=== PATIENT | female | born 1980 | race Hispanic/Latino ===

== ENCOUNTER 2024-03-29 17:50 | Emergency (ER) | payer SELFPAY ==
[2024-03-29] MEDS ORDERED: ONDANSETRON 4 MG (ODT) TAB ONE (18:57)
[2024-03-29 19:09] LABS: SARS-CoV-2 Antigen CONTROL BLUE LINE VIS/BG OK; SARS-CoV-2 Antigen Rapid Res Negative (Negative)
--- NOTE | 2024-03-29 19:23 | ER ---
Nurse's Notes [facility] – [place], [place] Name: Britney Bradshaw Age: 43 yrs Sex: Female : 1980 Arrival Date: 03/29/2024 Time: 17:50 Bed 21 Private MD: Diagnosis: Streptococcal pharyngitis;Influenza due to identified novel influenza A virus Presentation: 03/29 18:33 Chief complaint: Patient states: N/V, fever, body aches, cough, congestion X 2 days. ld1 Coronavirus screen: At this time, the client does not indicate any symptoms associated with coronavirus-19. Ebola Screen: No symptoms or risks identified at this time. Initial Sepsis Screen: Does the patient meet any 2 criteria? No. Patient's initial sepsis screen is negative. Does the patient have a suspected source of infection? No. Patient's initial sepsis screen is negative. Risk Assessment: Do you want to hurt yourself or someone else? Patient reports no desire to harm self or others. Onset of symptoms was March 29, 2024. 18:33 Method Of Arrival: Ambulatory ld1 18:33 Acuity: NOE 4 ld1 Triage Assessment: 18:34 General: Appears in no apparent distress. comfortable, Behavior is calm, cooperative, ld1 appropriate for age. Pain: Denies pain. EENT: No signs and/or symptoms were reported regarding the EENT system. Neuro: Level of Consciousness is awake, alert, obeys commands, Oriented to person, place, time, situation. Cardiovascular: Capillary refill < 3 seconds Patient's skin is warm and dry. Respiratory: Airway is patent Respiratory effort is even, unlabored. GI: Abdomen is round non-distended. : No signs and/or symptoms were reported regarding the genitourinary system. Derm: No signs and/or symptoms reported regarding the dermatologic system. Musculoskeletal: No signs and/or symptoms reported regarding the musculoskeletal system. 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 - Infectious Disease History:: Denies. - Social history:: Smoking status: Patient denies any tobacco usage or history of. Screenin:50 [facility] ED Fall Risk Assessment (Adult) History of falling in the last 3 months, aa10 including since admission No falls in past 3 months (0 pts) Confusion or Disorientation No (0 pts) Intoxicated or Sedated No (0 pts) Impaired Gait No (0 pts) Mobility Assist Device Used Yes (1 pt) Altered Elimination No (0 pt) Score/Fall Risk Level 0 - 2 = Low Risk Oriented to surroundings, Maintained a safe environment, Educated pt \T\ family on fall prevention, incl call for assistance when getting out of bed, Assessed \T\ reinforced patient's understanding of fall precautions, Provided non-skid footwear. 19:50 Abuse screen: Denies threats or abuse. Denies injuries from another. Nutritional aa10 screening: No deficits noted. Tuberculosis screening: No symptoms or risk factors identified. Assessment: 19:49 General: Appears in no apparent distress. comfortable, well groomed, Behavior is calm, aa10 cooperative, appropriate for age, Smells of Reports Denies. Pain: Denies pain. 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 Full function Gait is steady, Cardiovascular: No deficits noted. Capillary refill < 3 seconds. Respiratory: No deficits noted. Breath sounds are clear bilaterally. Vital Signs: 18:33 BP 141 / 85; Pulse 76; Resp 18; Temp 97.9(TE); Pulse Ox 100% on R/A; ld1 19:48 BP 108 / 76; Pulse 103; Resp 20; Temp 98.4; Pulse Ox 96% on R/A; aa10 ED Course: 18:29 Patient arrived in ED. kb3 18:30 Juana Vasquez FNP-C [facility]. kb 18:30 Sharifa Trujillo MD is Attending Physician. kb 18:34 Triage completed. ld1 18:34 Arm band placed on right wrist. ld1 19:50 No provider procedures requiring assistance completed. Patient did not have IV access aa10 during this emergency room visit. 19:51 Patient has correct armband on for positive identification. Allergy band placed. Fall aa10 risk band placed. Placed in gown. Bed in low position. Call light in reach. Side rails up X2. Provided Education on: plan of care. Administered Medications: 19:08 Drug: Ondansetron PO 4 mg PO once Route: PO; ld1 19:37 Follow up: Response: No adverse reaction; Marked relief of symptoms aa10 Medication: 19:51 VIS not applicable for this client. aa10 Outcome: :22 Discharge ordered by . carmen 19:50 Discharged to home ambulatory, aa10 19:50 Condition: good 19:50 Discharge instructions given to patient, Instructed on discharge instructions, Prescriptions given X 2, 19:52 Patient left the ED. aa10 Signatures: Juana Vasquez, SHARON ANDRADE-Chey Brown RN RN ld1 Radha Lang, RN RN kb3 Erin Campos RN RN aa10
--- NOTE | 2024-03-29 19:23 | EDPHYS ---
Physician Documentation [facility] Name: Britney Bradshaw Age: 43 yrs Sex: Female : 1980 Arrival Date: 03/29/2024 Time: 17:50 Bed 21 Private MD: ED Physician Sharifa Trujillo HPI: 03/29 19:21 This 43 yrs old Female presents to ER via Ambulatory with complaints of Flu kb Symptoms. 19:21 Patient is a 43-year-old female who presents for fever, vomiting, cough and bodyaches kb that started yesterday. Daughter has similar symptoms.. 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 - Infectious Disease History:: Denies. - Social history:: Smoking status: Patient denies any tobacco usage or history of. ROS: 19:21 Constitutional: As per HPI kb Exam: 19:21 Constitutional: This is a well developed, well nourished patient who is awake, alert, kb and in no acute distress. Head/Face: Normocephalic, atraumatic. ENT: Moist Mucous membranes Cardiovascular: Regular rate Respiratory: Respirations even and unlabored. No increased work of breathing. Talking in full sentences Abdomen/GI: Soft, non-tender. No distention Skin: Warm, dry with normal turgor. Normal color. MS/ Extremity: Pulses equal, no cyanosis. Neurovascular intact. Full, normal range of motion. Neuro: Awake and alert, GCS 15, oriented to person, place, time, and situation. Vital Signs: 18:33 BP 141 / 85; Pulse 76; Resp 18; Temp 97.9(TE); Pulse Ox 100% on R/A; ld1 19:48 BP 108 / 76; Pulse 103; Resp 20; Temp 98.4; Pulse Ox 96% on R/A; aa10 MDM: 18:30 Medical Screening Exam initiated kb 19:21 Differential diagnosis: flu, covid, strep, uri. Data reviewed: vital signs, nurses kb notes. Counseling: I had a detailed discussion with the patient and/or guardian regarding the historical points, exam findings, and any diagnostic results supporting the discharge/admit diagnosis, lab results, the need for outpatient follow up, a family practitioner, to return to the emergency department if symptoms worsen or persist or if there are any questions or concerns that arise at home. 03/29 18:29 Order name: Influenza Screen (A ; Complete Time: 19:19 EDMS 03/29 18:29 Order name: SARS-COV-2 Antigen Rapid; Complete Time: 19:09 EDMS 03/29 18:29 Order name: Group A Streptococcus Rapid Sc; Complete Time: 19:19 EDMS Administered Medications: 19:08 Drug: Ondansetron PO 4 mg PO once Route: PO; ld1 19:37 Follow up: Response: No adverse reaction; Marked relief of symptoms aa10 Disposition Summary: 03/29/24 19:22 Discharge Ordered Notes: Location: Home kb Condition: Stable kb Diagnosis - Streptococcal pharyngitis kb - Influenza due to identified novel influenza A virus kb Followup: kb - With: Emergency Department - When: As needed - Reason: Worsening of condition Followup: kb - With: Private Physician - When: 2 - 3 days - Reason: Recheck today's complaints, Continuance of care, Re-evaluation by your physician Discharge Instructions: - Discharge Summary Sheet kb - Strep Throat, Adult, [id number] kb - Influenza, Adult, [id number] kb Forms: - Medication Reconciliation Form kb - Antibiotic Education kb - Prescription Opioid Use kb - Patient Portal Instructions kb - Leadership Thank You Letter kb Prescriptions: - Augmentin 875-125 mg Oral Tablet - take 1 tablet ORAL route every 12 hours for 10 days; 20 tablet; Refills: 0, kb Product Selection Permitted - Zofran 4 mg Oral tablet - take 1 tablet ORAL route every 6 hours As needed; 12 tablet; Refills: 0, kb Product Selection Permitted Signatures: Juana Vasquez FNP-C FNP-Ckb Sims, Lauren RN RN ld1 Radha Lang RN RN kb3 Erin Campos RN aa10 Corrections: (The following items were deleted from the chart) 19:21 19:20 Constitutional: As per HPI ENT: Negative for injury, pain, and discharge, kb Cardiovascular: Negative for chest pain, palpitations, and edema, Respiratory: Negative for shortness of breath, cough, wheezing, and pleuritic chest pain, Abdomen/GI: Negative for abdominal pain, nausea, vomiting, diarrhea, and constipation, MS/Extremity: Negative for injury and deformity, Skin: Negative for injury, rash, and discoloration, Neuro: Negative for headache, weakness, numbness, tingling, and seizure, kb
[2024-03-29 22:58] VITALS: BP 108/76; TEMP 98.4; O2SAT 96
== END 2024-03-29 19:52 | disposition home or self-care (01) ==
LOC: ER 17:50
DX: J10.1 Influenza due to other identified influenza virus with other respiratory manifestations (principal); J02.0 Streptococcal pharyngitis; Z11.52 Encounter for screening for COVID-19
CPT/HCPCS: 36415; 87081; 87804; 87811; Q0162

== ENCOUNTER 2024-09-23 06:25 | Inpatient (IN) | payer SELFPAY ==
[2024-09-23] MEDS ORDERED: ONDANSETRON 4 MG/2 ML VIAL ONE ×2 (06:41→08:44)
[2024-09-23] MEDS ORDERED: NA CHLORIDE 0.9% 1,000 ML ONE ×3 (06:42→12:15)
[2024-09-23 06:50] LABS: Absolute Lymphocytes (CBC) 0.5 K/uL (0.7-4.9); Hematocrit 35.5 % (36.0-45.0); Hemoglobin 12.0 g/dL (12.0-15.0); MCH 29.9 pg (27.0-35.0); MCHC 33.8 g/dL (32.0-36.0); MCV 88.5 fL (80-100); MPV 8.9 fL (7.6-11.3); Nucleated RBC Absolute Count 0.0 (0-0); Nucleated Red Blood Cells % 0.0 % (0-0); RBC Red Blood Cell Count 4.01 M/uL (3.86-4.86); White Blood Count 12.80 thou/uL (4.3-10.9)
[2024-09-23 06:59] LABS: Urine Culture Reflex Order REFLEXED; Urine Microscopic Reflex YN ORDER UMIC; Urine WBC Clump Occasional /HPF (None Seen)
[2024-09-23 07:11] LABS: ALT/SGPT 21.0 U/L (13-56); AST/SGOT 11.0 U/L (15-37); Albumin 2.9 g/dL (3.4-5.0); Albumin/Globulin Ratio 0.6 (1.1-1.8); Alkaline Phosphatase 116.0 U/L (45-117); Anion Gap 15.7 mEq/L (5.0-15.0); BUN Blood Urea Nitrogen 19.0 mg/dL (7-18); Globulin 4.9 g/dL (2.3-3.5); Lipase 13.0 U/L (13-75); Potassium 3.7 mEq/L (3.5-5.1)
[2024-09-23 07:13] LABS: Glucose Level 451.0 mg/dL (74-106)
[2024-09-23] MEDS ORDERED: NA CHLORIDE 0.9% 100 ML ONE (07:32)
[2024-09-23] MEDS ORDERED: INSULIN REGULAR (HUMAN) 100 UNIT/ML ONE ×2 (07:32→12:14)
[2024-09-23] MEDS ORDERED: FAMOTIDINE 20 MG/2 ML VIAL IV ONE (07:32)
[2024-09-23] MEDS ORDERED: CEFEPIME 1 GM/VIAL ONE (07:33)
--- NOTE | 2024-09-23 07:47 | RAD REPORT ---
Abdomen Exam Limited: 09/23/2024 7:12 AM CLINICAL HISTORY: ABD PAIN STUDY: Limited right upper quadrant ultrasound of abdomen. COMPARISON: None. FINDINGS: Liver: Limited evaluation. Hepatic steatosis noted. Fatty sparing along the gallbladder fossa. Bile ducts: No intrahepatic or extrahepatic biliary ductal dilatation. Common bile duct measures 3 mm. Gallbladder: Cholelithiasis. The gallbladder is distended. No gallbladder wall thickening. No sonogra phic Fischer sign. IMPRESSION: Gallstones with distended gallbladder but no specific findings to suggest acute cholecystitis by ultr asound. No sonographic Fischer sign.
[2024-09-23] MEDS ORDERED: MORPHINE 4 MG/ML SYR ONE (08:43)
[2024-09-23 08:55] LABS: White Blood Cell Scan OK (OK)
[2024-09-23 08:56] LABS: Blood Morphology Comment NOT SEEN (NOT SEEN)
[2024-09-23] MEDS ORDERED: ACETAMINOPHEN 500 MG TAB ONE (09:04)
[2024-09-23] MEDS ORDERED: Levofloxacin 750mg IV 750 MG/150 ML BAG IV ONE (09:04)
--- NOTE | 2024-09-23 09:07 | ER ---
Nurse's Notes [facility] Name: Britney Bradshaw Age: 44 yrs Sex: Female : 1980 Arrival Date: 09/23/2024 Time: 06:25 Bed 14 Private MD: Diagnosis: Other cholelithiasis without obstruction;Abdominal pain, Generalized;Fever, unspecified;Pyelonephritis acute;Type 2 diabetes mellitus with hyperglycemia;Elevated white blood cell count;Severe sepsis with septic shock Presentation: 09/23 06:34 Chief complaint: Patient states: C/O NAUSEA/VOMITING AND EPIGASTRIC (PRESSURE) SINCE br2 YESTERDAY MORNING. Coronavirus screen: Client denies travel out of the [place] in the last 14 days. Ebola Screen: Patient denies exposure to infectious person. Initial Sepsis Screen: Does the patient meet any 2 criteria? HR > 90 bpm. Does the patient have a suspected source of infection? No. Patient's initial sepsis screen is negative. Risk Assessment: Do you want to hurt yourself or someone else? Patient reports no desire to harm self or others. Onset of symptoms was September 22, 2024. 06:34 Method Of Arrival: Ambulatory br2 06:34 Acuity: NOE 3 br2 Triage Assessment: 06:39 General: Appears uncomfortable, Behavior is calm, cooperative. Pain: Complains of pain br2 in epigastric area Pain currently is 7 out of 10 on a pain scale. GI: Reports epigastric pain, nausea, vomiting. Historical: - Allergies: 06:39 No Known Allergies; br2 - PMHx: 06:39 ENLARGED GALL BLADDER; br2 - Immunization history:: Adult Immunizations up to date. - Infectious Disease History:: Denies. - Social history:: Smoking status: Patient denies any tobacco usage or history of. Patient/guardian denies using alcohol, street drugs. Screenin:00 [facility] ED Fall Risk Assessment (Adult) History of falling in the last 3 months, ss12 including since admission No falls in past 3 months (0 pts) Confusion or Disorientation No (0 pts) Intoxicated or Sedated No (0 pts) Impaired Gait No (0 pts) Mobility Assist Device Used No (0 pt) Altered Elimination No (0 pt) Score/Fall Risk Level 0 - 2 = Low Risk Oriented to surroundings, Maintained a safe environment, Educated pt \T\ family on fall prevention, incl call for assistance when getting out of bed, Assessed \T\ reinforced patient's understanding of fall precautions. Abuse screen: Denies threats or abuse. Denies injuries from another. Nutritional screening: No deficits noted. Tuberculosis screening: No symptoms or risk factors identified. Assessment: 06:28 General: Appears in no apparent distress. comfortable, Behavior is calm, cooperative, ss12 quiet. Pain: Complains of pain in epigastric Pain does not radiate. Pain currently is 7 out of 10 on a pain scale. Quality of pain is described as aching, Pain began suddenly, Is intermittent. Neuro: No deficits noted. Level of Consciousness is awake, alert, obeys commands, Oriented to person, place, time, situation. Cardiovascular: No deficits noted. Denies chest pain, Patient's skin is warm and dry. Respiratory: No deficits noted. Airway is patent Respiratory effort is even, unlabored, Respiratory pattern is regular, symmetrical. GI: Abdomen is flat, non-distended, Bowel sounds present X 4 quads. hypoactive in right upper quadrant and right lower quadrant Abd is soft and non tender X 4 quads. Reports nausea, vomiting. : No deficits noted. EENT: No deficits noted. No signs and/or symptoms were reported regarding the EENT system. Derm: No deficits noted. No signs and/or symptoms reported regarding the dermatologic system. Musculoskeletal: No deficits noted. No signs and/or symptoms reported regarding the musculoskeletal system. 07:30 Reassessment: Patient appears in no apparent distress at this time. No changes from kc6 previously documented assessment. Patient and/or family updated on plan of care and expected duration. Pain level reassessed. Patient is alert, oriented x 3, equal unlabored respirations, skin warm/dry/pink. 08:24 Reassessment: Patient appears in no apparent distress at this time. No changes from kc6 previously documented assessment. Patient and/or family updated on plan of care and expected duration. Pain level reassessed. Patient is alert, oriented x 3, equal unlabored respirations, skin warm/dry/pink. 08:48 GI: Pt is actively vomiting. kc6 08:57 General: Reports chills for 0-12 hours. kc6 09:24 Reassessment: Patient appears in no apparent distress at this time. No changes from kc6 previously documented assessment. Patient and/or family updated on plan of care and expected duration. Pain level reassessed. Patient is alert, oriented x 3, equal unlabored respirations, skin warm/dry/pink. Vital Signs: 06:34 BP 143 / 88; Pulse 123; Resp 20; Temp 97.5(TE); Pulse Ox 95% on R/A; Weight 83.91 kg; br2 Height 5 ft. 2 in. ; Pain 7/10; 07:06 BP 137 / 84; Pulse 110; Resp 16 S; Pulse Ox 98% on R/A; kc6 08:24 BP 149 / 89; Pulse 122; Resp 19 S; Pulse Ox 93% on R/A; kc6 08:57 Temp 101.7(O); kc6 10:13 BP 169 / 90; Pulse 112; Resp 19 S; Pulse Ox 99% on R/A; kc6 10:49 Temp 100.2(O); kc6 06:34 Body Mass Index 33.84 (83.91 kg, 157.48 cm) br2 06:34 Pain Scale: Adult br2 ED Course: 06:27 Patient arrived in ED. jj6 06:33 Hernán Jim, RN is Primary Nurse. ss12 06:39 Triage completed. br2 06:39 Arm band placed on right wrist. br2 06:53 Inserted saline lock: 22 gauge in right forearm, using aseptic technique. Blood oe collected. Flushed with 10 mL NS. 06:53 Lipase Sent. oe 06:53 CMP Sent. oe 06:53 CBC with Diff Sent. oe 06:54 UA Rfx Gasper Cult if indicated Sent. oe 07:01 Patient has correct armband on for positive identification. Provided Education on: plan ss12 of care. 07:01 No provider procedures requiring assistance completed. ss12 07:06 Primary Nurse role handed off by Hernán Jim RN kc6 07:06 Ashley Dumont, YING is Primary Nurse. kc6 07:07 Patient has correct armband on for positive identification. Bed in low position. Call kc6 light in reach. Side rails up X 1. Report received from YING Jim. Pulse ox on. NIBP on. Door closed. Noise minimized. Lights dimmed. Pillow given. Verbal reassurance given. 07:10 Akshat Patiño MD is Attending Physician. susie 07:40 US Abdomen Limited In Process Unspecified. EDMS 07:49 Radiology exam delayed due to test not completed at this time. ls3 08:38 CT Abd/Pelvis - IV Contrast Only In Process Unspecified. EDMS 09:06 Remberto Castellanos MD is Hospitalizing Provider. susie 10:36 Chest Single View XRAY In Process Unspecified. EDMS 10:49 Patient admitted, IV remains in place. kc6 Administered Medications: 06:30 Drug: Ondansetron IVP 4 mg IVP once; over 2 minutes Route: IVP; Site: right forearm; ss12 08:23 Follow up: Response: No adverse reaction; Nausea unchanged kc6 06:30 Drug: NS 0.9% IV 1000 ml IV at 1 bolus Per protocol; to be given as a bolus over 60 ss12 minutes Route: IV; Rate: 1 bolus; Site: right forearm; 08:23 Follow up: Response: No adverse reaction; IV Status: Completed infusion; IV Intake: kc6 1000ml 07:48 Drug: Famotidine IVP 20 mg IVP once; dilute with 10 mL 0.9% NaCl; give over 2 minutes kc6 Route: IVP; Site: right forearm; 08:23 Follow up: Response: No adverse reaction kc6 07:48 Drug: Insulin Regular Human IVP 10 units IVP once {Co-Signature: af3 (Maritza Alonso RN).} kc6 Route: IVP; Site: right forearm; 08:35 Follow up: Response: No adverse reaction; Blood sugar is lowered kc6 07:48 Drug: Cefepime IVPB 1 grams IVPB at 200 ml/hr once over 30 mins; (mix in NS 100 mL) kc6 Route: IVPB; Rate: 200 ml/hr; Infused Over: 30 mins; Site: right forearm; 08:23 Follow up: Response: No adverse reaction; IV Status: Completed infusion; IV Intake: kc6 100ml 08:56 Drug: Ondansetron IVP 4 mg IVP once; over 2 minutes Route: IVP; Site: right forearm; kc6 09:14 Follow up: Response: No adverse reaction; Nausea is decreased kc6 08:57 Drug: morphine IVP or IV 4 mg IVP once over 4 mins Route: IVP; Infused Over: 4 mins; kc6 Site: right forearm; 09:14 Follow up: Response: No adverse reaction; Pain is decreased; RASS: Alert and Calm (0) kc6 09:15 Drug: levofloxacin IVPB 750 mg 150 ml IVPB once over 90 mins Volume: 150 ml; Route: kc6 IVPB; Infused Over: 90 mins; Site: right forearm; 10:50 Follow up: Response: No adverse reaction; IV Status: Completed infusion; IV Intake: kc6 150ml 09:15 Drug: Acetaminophen PO 1000 mg PO once Route: PO; kc6 10:50 Follow up: Response: No adverse reaction; Temperature is decreased kc6 09:32 Drug: NS 0.9% IV (30 ml/kg) 30 ml/kg IV at bolus once; Sepsis Protocol; to be given as kc6 a bolus over 90 minutes Route: IV; Rate: bolus; Site: right forearm; 10:45 Follow up: Response: No adverse reaction; IV Status: Completed infusion; IV Intake: kc6 1500ml ; 1,000 mL subtracted from previous administration Medication: 07:01 VIS not applicable for this client. ss12 Intake: 08:23 IV: 100ml; Total: 100ml. kc6 08:23 IV: 1000ml; Total: 1100ml. kc6 10:45 IV: 1500ml; Total: 2600ml. kc6 10:50 IV: 150ml; Total: 2750ml. kc6 Outcome: 09:07 Decision to Hospitalize by Provider. susie 10:49 Admitted to ER Hold. Please see [facility] for further documentation. kc6 10:49 Condition: good 10:49 Instructed on the need for admit, 12:23 Patient left the ED. kc6 Signatures: Dispatcher [employer] EDAkshat Castellanos MD MD cha Espinosa, [place] oe Siler, Lynzie ls3 Franca Fitzgerald jj6 Ashley Dumont RN RN kc6 Mirella Ventura RN RN br2 Hernán Jim RN RN ss12 Maritza Alonso RN af3 Corrections: (The following items were deleted from the chart) 07:04 06:28 GI: No deficits noted. Abdomen is flat, non-distended, Bowel sounds present X 4 ss12 quads. Abd is soft and non tender X 4 quads. ss12 07:04 06:28 GI: No deficits noted. Abdomen is flat, non-distended, Bowel sounds present X 4 ss12 quads. hypoactive in right upper quadrant and right lower quadrant Abd is soft and non tender X 4 quads. ss12
--- NOTE | 2024-09-23 09:07 | EDPHYS ---
Physician Documentation [facility] Name: Britney Bradshaw Age: 44 yrs Sex: Female : 1980 Arrival Date: 09/23/2024 Time: 06:25 Bed 14 Private MD: ED Physician Akshat Patiño HPI: 09/23 09:01 This 44 yrs old Female presents to ER via Ambulatory with complaints of susie Abdominal Pain, Nausea/Vomiting. 09:01 The patient presents to the emergency department with nausea, vomiting, that is susie continuous. Onset: The symptoms/episode began/occurred 2 day(s) ago. Possible causes: unknown. The symptoms are aggravated by. Associated signs and symptoms: The patient has no apparent associated signs or symptoms. Unable to obtain HPI due to. The patient has not experienced similar symptoms in the past. Historical: - Allergies: 06:39 No Known Allergies; br2 - PMHx: 06:39 ENLARGED GALL BLADDER; br2 - Immunization history:: Adult Immunizations up to date. - Infectious Disease History:: Denies. - Social history:: Smoking status: Patient denies any tobacco usage or history of. Patient/guardian denies using alcohol, street drugs. ROS: 09:02 Constitutional: Negative for fever, chills, and weight loss, Eyes: Negative for injury, susie pain, redness, and discharge, ENT: Negative for injury, pain, and discharge, Neck: Negative for injury, pain, and swelling, Respiratory: Negative for shortness of breath, cough, wheezing, and pleuritic chest pain, Back: Negative for injury and pain, : Negative for injury, bleeding, discharge, and swelling, MS/Extremity: Negative for injury and deformity, Skin: Negative for injury, rash, and discoloration, Neuro: Negative for headache, weakness, numbness, tingling, and seizure, Psych: Negative for depression, anxiety, suicide ideation, homicidal ideation, and hallucinations, Allergy/Immunology: Negative for hives, rash, and allergies, Endocrine: Negative for neck swelling, polydipsia, polyuria, polyphagia, and marked weight changes, Hematologic/Lymphatic: Negative for swollen nodes, abnormal bleeding, and unusual bruising, 09:02 Cardiovascular: Positive for palpitations, 09:02 Abdomen/GI: Positive for abdominal pain, nausea and vomiting, Exam: 09:02 Head/Face: Normocephalic, atraumatic. Eyes: Pupils equal round and reactive to light, susie extra-ocular motions intact. Lids and lashes normal. Conjunctiva and sclera are non-icteric and not injected. Cornea within normal limits. Periorbital areas with no swelling, redness, or edema. ENT: Nares patent. No nasal discharge, no septal abnormalities noted. Tympanic membranes are normal and external auditory canals are clear. Oropharynx with no redness, swelling, or masses, exudates, or evidence of obstruction, uvula midline. Mucous membranes moist. Neck: Trachea midline, no thyromegaly or masses palpated, and no cervical lymphadenopathy. Supple, full range of motion without nuchal rigidity, or vertebral point tenderness. No Meningismus. Chest/axilla: Normal chest wall appearance and motion. Nontender with no deformity. No lesions are appreciated. Respiratory: Lungs have equal breath sounds bilaterally, clear to auscultation and percussion. No rales, rhonchi or wheezes noted. No increased work of breathing, no retractions or nasal flaring. Abdomen/GI: Soft, non-tender, with normal bowel sounds. No distension or tympany. No guarding or rebound. No evidence of tenderness throughout. Back: No spinal tenderness. No costovertebral tenderness. Full range of motion. Skin: Warm, dry with normal turgor. Normal color with no rashes, no lesions, and no evidence of cellulitis. MS/ Extremity: Pulses equal, no cyanosis. Neurovascular intact. Full, normal range of motion., bilateral aka Neuro: Awake and alert, GCS 15, oriented to person, place, time, and situation. Cranial nerves II-XII grossly intact. Motor strength 5/5 in all extremities. Sensory grossly intact. Cerebellar exam normal. Normal gait. Psych: Awake, alert, with orientation to person, place and time. Behavior, mood, and affect are within normal limits. 09:02 Constitutional: The patient appears febrile, 09:02 Cardiovascular: Rate: tachycardic, actual rate is 122 bpm, Rhythm: regular, Pulses: Pulses are 4+ in bilateral radial, brachial, femoral, popliteal, posterior tibial and and dorsalis pedis arteries.. Heart sounds: normal, Edema: is not appreciated, JVD: is not appreciated, 09:02 Abdomen/GI: Inspection: abdomen appears normal, Bowel sounds: normal, Palpation: moderate abdominal tenderness, Liver: no appreciated palpable abnormalities, Hernia: not appreciated, Vital Signs: 06:34 BP 143 / 88; Pulse 123; Resp 20; Temp 97.5(TE); Pulse Ox 95% on R/A; Weight 83.91 kg; br2 Height 5 ft. 2 in. ; Pain 7/10; 07:06 BP 137 / 84; Pulse 110; Resp 16 S; Pulse Ox 98% on R/A; kc6 08:24 BP 149 / 89; Pulse 122; Resp 19 S; Pulse Ox 93% on R/A; kc6 08:57 Temp 101.7(O); kc6 10:13 BP 169 / 90; Pulse 112; Resp 19 S; Pulse Ox 99% on R/A; kc6 10:49 Temp 100.2(O); kc6 06:34 Body Mass Index 33.84 (83.91 kg, 157.48 cm) br2 06:34 Pain Scale: Adult br2 MDM: 07:10 Medical Screening Exam initiated susie 09:03 Differential diagnosis: Nonspecific abd pain, gastritis, cholecystitis, pancreatitis, ussie appendicitis, diverticulitis, viral gastroenteritis, gastroenteritis, appendicitis, bowel obstruction, coronary artery disease, Cholelithiasis. Data reviewed: vital signs, nurses notes, lab test result(s), radiologic studies, CT scan, ultrasound. Consideration of Admission/Observation Patient was admitted/placed on observation. Escalation of care including admission/observation considered. I considered the following discharge prescriptions or medication management in the emergency department Medications were administered in the Emergency Department. See MAR. Independent interpretation of the following test(s) in the Emergency Department CT Scan: My interpretation is ct abd pel. Test considered but Not performed: MRI: no mrcp. Historians other than the Patient: pt well informed. Care significantly affected by the following chronic conditions: gb. 09/23 06:29 Order name: CBC with Diff; Complete Time: 08:57 rn 09/23 06:29 Order name: CMP; Complete Time: 07:14 rn 09/23 06:29 Order name: Lipase; Complete Time: 07:14 rn 09/23 06:29 Order name: UA Rfx Gasper Cult if indicated; Complete Time: 07:12 rn 09/23 07:12 Order name: Urine Culture EDMS 09/23 07:25 Order name: CBC Smear Scan; Complete Time: 08:57 EDMS 09/23 07:51 Order name: Test, Urine; Complete Time: 08:57 [facility] 09/23 08:37 Order name: Glucose, Ancillary Testing; Complete Time: 08:57 EDMS 09/23 09:08 Order name: Blood Culture Adult (2) [facility] 09/23 09:08 Order name: Lactate w/ 2H reflex if indic. [facility] 09/23 10:10 Order name: Ghost Lactate-NO COLLECT Timer EDMS 09/23 10:33 Order name: CBC with Automated Diff EDMS 09/23 10:33 Order name: CBC with Automated Diff EDMS 09/23 10:33 Order name: CBC with Automated Diff EDMS 09/23 10:33 Order name: CBC with Automated Diff EDMS 09/23 10:33 Order name: CBC with Automated Diff EDMS 09/23 10:33 Order name: CBC with Automated Diff EDMS 09/23 10:33 Order name: Comprehensive Metabolic Panel EDMS 09/23 10:33 Order name: Comprehensive Metabolic Panel EDMS 09/23 10:33 Order name: Comprehensive Metabolic Panel EDMS 09/23 10:33 Order name: Comprehensive Metabolic Panel EDMS 09/23 10:33 Order name: Comprehensive Metabolic Panel EDMS 09/23 10:33 Order name: Comprehensive Metabolic Panel EDMS 09/23 10:33 Order name: Hemoglobin A1c EDMS 09/23 10:33 Order name: Hemoglobin A1c EDMS 09/23 07:12 Order name: CT Abd/Pelvis - IV Contrast Only; Complete Time: 09:17 [facility] 09/23 07:12 Order name: US Abdomen Limited; Complete Time: 08:57 [facility] 09/23 09:08 Order name: Chest Single View XRAY susie 09/23 10:23 Order name: Renal Ultrasound-Complete [facility] 09/23 06:29 Order name: IV Saline Lock; Complete Time: 06:54 rn 09/23 06:29 Order name: Labs collected and sent; Complete Time: 06:53 rn Administered Medications: 06:30 Drug: Ondansetron IVP 4 mg IVP once; over 2 minutes Route: IVP; Site: right forearm; ss12 08:23 Follow up: Response: No adverse reaction; Nausea unchanged [facility] 06:30 Drug: NS 0.9% IV 1000 ml IV at 1 bolus Per protocol; to be given as a bolus over 60 ss12 minutes Route: IV; Rate: 1 bolus; Site: right forearm; 08:23 Follow up: Response: No adverse reaction; IV Status: Completed infusion; IV Intake: kc6 1000ml 07:48 Drug: Famotidine IVP 20 mg IVP once; dilute with 10 mL 0.9% NaCl; give over 2 minutes kc6 Route: IVP; Site: right forearm; 08:23 Follow up: Response: No adverse reaction 6 07:48 Drug: Insulin Regular Human IVP 10 units IVP once {Co-Signature: af3 (Maritza Alonso RN).} kc6 Route: IVP; Site: right forearm; 08:35 Follow up: Response: No adverse reaction; Blood sugar is lowered [facility] 07:48 Drug: Cefepime IVPB 1 grams IVPB at 200 ml/hr once over 30 mins; (mix in NS 100 mL) kc6 Route: IVPB; Rate: 200 ml/hr; Infused Over: 30 mins; Site: right forearm; 08:23 Follow up: Response: No adverse reaction; IV Status: Completed infusion; IV Intake: kc6 100ml 08:56 Drug: Ondansetron IVP 4 mg IVP once; over 2 minutes Route: IVP; Site: right forearm; kc6 09:14 Follow up: Response: No adverse reaction; Nausea is decreased 6 08:57 Drug: morphine IVP or IV 4 mg IVP once over 4 mins Route: IVP; Infused Over: 4 mins; kc6 Site: right forearm; 09:14 Follow up: Response: No adverse reaction; Pain is decreased; RASS: Alert and Calm (0) [facility] 09:15 Drug: levofloxacin IVPB 750 mg 150 ml IVPB once over 90 mins Volume: 150 ml; Route: kc6 IVPB; Infused Over: 90 mins; Site: right forearm; 10:50 Follow up: Response: No adverse reaction; IV Status: Completed infusion; IV Intake: kc6 150ml 09:15 Drug: Acetaminophen PO 1000 mg PO once Route: PO; kc6 10:50 Follow up: Response: No adverse reaction; Temperature is decreased [facility] 09:32 Drug: NS 0.9% IV (30 ml/kg) 30 ml/kg IV at bolus once; Sepsis Protocol; to be given as kc6 a bolus over 90 minutes Route: IV; Rate: bolus; Site: right forearm; 10:45 Follow up: Response: No adverse reaction; IV Status: Completed infusion; IV Intake: kc6 1500ml ; 1,000 mL subtracted from previous administration Disposition Summary: 09/23/24 09:07 Hospitalization Ordered Notes: Hospitalization Status: Inpatient Admission susie Provider: Remberto Castellanos cha Location: Telemetry/[facility] (Inpatient) susie Condition: Fair susie Problem: new susie Symptoms: have improved susie Bed/Room Type: Standard susie Room Assignment: 404(09/23/24 11:30) eb Diagnosis - Other cholelithiasis without obstruction susie - Abdominal pain, Generalized susie - Fever, unspecified susie - Pyelonephritis acute susie - Type 2 diabetes mellitus with hyperglycemia susie - Elevated white blood cell count susie - Severe sepsis with septic shock susie Forms: - Medication Reconciliation Form susie - SBAR form susie - Leadership Thank You Letter susie Signatures: Dispatcher [employer] Akshat Vargas MD MD cha Nieto, Roman, MD MD rn Botello, Elizabeth eb Campbell, Kaitlyn RN RN kc6 Mirella Ventura RN RN br2 Hernán Jim RN RN ss12 Maritza Alonso RN af3 Corrections: (The following items were deleted from the chart) 06:30 06:30 CBC+H.LAB.BRZ ordered. EDMS EDMS 06:30 06:30 COMPREHENSIVE METABOLIC PANEL+C.LAB.BRZ ordered. EDMS EDMS 06:30 06:30 LIPASE+C.LAB.BRZ ordered. EDMS EDMS 06:30 06:30 Abdomen Pelvis W Con+CT.RAD.BRZ ordered. EDMS EDMS 07:13 07:13 Abdomen Pelvis W Con+CT.RAD.BRZ ordered. EDMS EDMS 07:13 07:13 Abdomen Limited+US.RAD.BRZ ordered. EDMS EDMS 07:51 07:51 Test, Urine+UC.LAB.BRZ ordered. EDMS EDMS 10:49 09:07 susie eb 11:30 10:49 429 eb eb
--- NOTE | 2024-09-23 09:08 | RAD REPORT ---
EXAMINATION: Abdomen Pelvis W Contrast CLINICAL INDICATION: Female, 44 years old.ABD PAIN TECHNIQUE: CT abdomen and pelvis was performed, after the administration of IV contrast, [facility]. Axial, sagittal and coronal reconstructions were obtained. One or more of the following dose reduction techniques were used: Automated exposure control, adjustment of the mA and/o r kV according to patient size, and/or iterative reconstruction. Unless otherwise specified, incidental findings do not require dedicated imaging follow-up. [id number]. COMPARISON: Same-day ultrasound FINDINGS: LOWER CHEST: No acute process identified.No significant pericardial effusion. Mild circumferential th ickening of the distal esophagus which could reflect esophagitis. UPPER GI: No significant abnormality. LIVER: Hepatic steatosis, but otherwise unremarkable. GALLBLADDER/BILE DUCTS: Distended gallbladder.?No pericholecystic fluid changes. PANCREAS: Atrophy but no acute findings. SPLEEN: Unremarkable. ADRENALS: No adrenal masses. KIDNEYS AND URETERS: Right-sided nephrogram bilaterally.Right lower pole subcapsular fluid collection measuring 12 mm in maximal thickness.Punctate stone in the upper pole left kidney.No ureteral calculi. Left renal cyst. ABDOMINAL AORTA AND OTHER VESSELS: Normal caliber aorta and IVC. PERITONEUM: No abnormal free fluid. No free air. LYMPH NODES: No pathologic lymphadenopathy. ABDOMINAL WALL: Unremarkable SMALL BOWEL/COLON: Small bowel has normal course and caliber. No colonic wall thickening or pericolon ic inflammatory changes.Normal appendix. URINARY BLADDER: Underdistended but grossly unremarkable. REPRODUCTIVE ORGANS: No pathologic process. MUSCULOSKELETAL: No acute or suspicious osseous abnormality. ADDITIONAL FINDINGS: None. IMPRESSION: Striated nephrograms bilaterally with an appearance that could reflect polynephritis. A subcapsular f luid collection is present along the lower pole right kidney that is presumably a subcapsular hematoma though of uncertain acuity and sterility. There is only mild mass effect on the lower pole o f the right kidney and the collection is likely not large enough for drainage. No hydronephrosis.
[2024-09-23] MEDS ORDERED: NA CHLORIDE 0.9% 500 ML ONE (09:26)
--- NOTE | 2024-09-23 10:54 | RAD REPORT ---
EXAM: Chest Single View HISTORY: 44 years Female COUGH COMPARISON: No prior exams FINDINGS: LUNGS/PLEURA: The lungs are clear. No pleural effusions or pneumothorax. No pulmonary edema. CARDIAC/MEDIASTINUM: The cardiac silhouette is within normal limits. UPPER ABDOMEN: No significant abnormality. BONES: No acute abnormality. LINES/TUBES/OTHER: N/A IMPRESSION: No evidence of acute cardiopulmonary disease.
[2024-09-23] MEDS: NA CHLORIDE 0.9% 1,000 ML IV SCH (11:00)
[2024-09-23] MEDS: INSULIN REGULAR (HUMAN) 100 UNIT/ML SQ SCH (11:30)
[2024-09-23] MEDS: ACETAMINOPHEN 325 MG TABLET PO PRN (12:59)
--- NOTE | 2024-09-23 14:01 | P.HP ---
Certification for Inpatient Patient admitted to: Inpatient With expected LOS: >2 Midnights Patient will require the following post-hospital care: None Practitioner: I am a practitioner with admitting privileges, knowledge of patient current condition, hospital course, and medical plan of care. Services: Services provided to patient in accordance with Admission requirements found in Title 42 Section 412.3 of the Code of Federal Regulations Patient History Date of Service: 09/23/24 Reason for admission: Pyelonephritis History of Present Illness: 44-year-old female with history of pbz-axjqrwh-ljdjvqbie diabetes presents the emergency department chief complaint of nausea vomiting and abdominal pain. She was seen here in the hospital on 09/07 and diagnosed with urinary tract infection, she was given 10 days of Keflex at that time. Her urine culture returned with Klebsiella which was sensitive to all tested antibiotics except for ampicillin. She reports that she felt better for couple days after finishing the antibiotics but then her symptoms came back with nausea, vomiting and abdominal pain. She was evaluated here in the emergency room and found to be febrile and tachycardic with an initial lactate of 2.1 white blood cell count of 12.8 CT of the abdomen pelvis was obtained which showed striated nephrograms bilaterally with an appearance that could reflect pyelonephritis. A subcapsular fluid collection is present on the lower pole of the right kidney that is presumably a subcapsular hematoma though of uncertain acuity instability. There is only mild mass effect on the lower pole of the right kidney and the collection is not large enough for drainage, no hydronephrosis noted. Abdominal ultrasound was also performed which showed gallstones with a distended gallbladder but no specific findings to suggest acute cholecystitis and no sonographic Fischer sign. Chest x-ray is negative for acute findings, discussed the case with radiology, area under the right kidney is very small, does not believe this is an abscess at this time and is not amendable to drainage, will obtain renal ultrasound to further evaluate/obtain baseline. Patient will be admitted for pyelonephritis, severe sepsis. Allergies No Known Allergies Allergy (Verified 09/23/24 12:38) Home Medications: Metformin HCl [Glucophage] 500 mg PO BIDWM 09/23/24 - Past Medical/Surgical History Has patient received pneumonia vaccine in the past: No Diabetic: Yes -: Diabetes- Type 2 -: UTI -: C- Scection x1 - Family History Mother -: Hypertension, Diabetes - Social History Smoking Status: Never smoker Alcohol use: No CD- Drugs: No Caffeine use: No Place of Residence: Home Review of Systems 10-point ROS is otherwise unremarkable General: Fever, Chills Gastrointestinal: Nausea, Vomiting, Abdominal Pain Physical Examination - Vital Signs Temperature: 101.7 F Blood Pressure: 149/89 Pulse: 122 Respirations: 19 Pulse Ox (%): 96 - Physical Exam General: Alert, In no apparent distress, Oriented x3 HEENT: Atraumatic, PERRLA, EOMI Neck: Supple, 2+ carotid pulse no bruit, No LAD Respiratory: Clear to auscultation bilaterally, Normal air movement Cardiovascular: Regular rate/rhythm, Normal S1 S2 Gastrointestinal: Normal bowel sounds, Tenderness (No epigastric tenderness, mild CVA tenderness on the right) Musculoskeletal: No tenderness Integumentary: No rashes Neurological: Normal gait, Normal speech, Normal strength at 5/5 x4 extr, Normal affect - Studies Laboratory Data (last 24 hrs) 09/23/24 09/23/24 06:37 06:37 WBC 12.80 H Hgb 12.0 Hct 35.5 L Plt Count 256 Sodium 132 L Potassium 3.7 BUN 19 H Creatinine 0.88 Glucose 451 H* Total Bilirubin 0.7 AST 11 L ALT 21 Alkaline Phosphatase 116 Lipase 13 Assessment and Plan - Plan Assessment: Severe sepsis secondary to bilateral pyelonephritis Right lower renal pole septic capsular fluid collection Distended gallbladder with cholelithiasis Diabetes mellitus type [id number] with noncompliance and hyperglycemia Plan: Severe sepsis secondary to bilateral pyelonephritis Right lower renal pole subcapsular fluid collection Blood cultures obtained in the ED, initial lactate 2.1, now downtrending Continue IV fluids, antibiotics with cefepime Urine culture from 09/07 grew Klebsiella which was essentially pansensitive completed 10 days of Keflex at home Renal ultrasound ordered and pending, unclear stability/chronicity of subcapsular fluid collection-not amenable to IR draining at this time Consider repeat ultrasound Distended gallbladder with cholelithiasis No epigastric pain currently, LFTs within normal limits surgical consultation Serial abdominal exams, daily labs Diabetes mellitus type [id number] with noncompliance and hyperglycemia ACHS Accu-Chek, sliding scale insulin A1c in the morning Start long-acting insulin tonight given degree of hyperglycemia DVT PPX: Lovenox Code status: Full code Discharge Plan: Home Plan to discharge in: Greater than 2 days - Advance Directives Does patient have a Living Will: No Does patient have a Durable POA for Healthcare: No - Code Status/Comfort Care Code Status Assessed: Yes (Full code) Critical Care: No Time Spent Managing Pts Care (In Minutes): 76
[2024-09-23] MEDS: HYDROCODONE/APAP 7.5/325 MG TAB PO PRN (15:20)
[2024-09-23] MEDS: ONDANSETRON 4 MG/2 ML VIAL IV PRN (16:36)
[2024-09-23] MEDS: CEFEPIME 2 GM in NA CHLORIDE 0.9% 100 ML IV SCH (20:00)
[2024-09-23] MEDS: INSULIN GLARGINE 100 UNIT/ML SQ SCH (20:21)
[2024-09-23] MEDS: PROMETHAZINE INJ 25 MG/ML AMP IM ONE (21:40)
[2024-09-24 06:50] LABS: Albumin 1.6 g/dL (3.4-5.0); Albumin/Globulin Ratio 0.5 (1.1-1.8); Alkaline Phosphatase 69 U/L (45-117); Anion Gap 12.2 mEq/L (5.0-15.0); BUN Blood Urea Nitrogen 14 mg/dL (7-18); Globulin 3.4 g/dL (2.3-3.5); Glucose Level 301 mg/dL (74-106); Potassium 3.2 mEq/L (3.5-5.1)
[2024-09-24 07:01] LABS: ALT/SGPT < 14 U/L (13-56); AST/SGOT < 10 U/L (15-37)
[2024-09-24 07:45] LABS: Absolute Lymphocytes (CBC) 0.7 K/uL (0.7-4.9); Hematocrit 23.3 % (36.0-45.0); Hemoglobin 7.9 g/dL (12.0-15.0); MCH 30.3 pg (27.0-35.0); MCHC 33.8 g/dL (32.0-36.0); MCV 89.8 fL (80-100); MPV 9.9 fL (7.6-11.3); Nucleated RBC Absolute Count 0.0 (0-0); Nucleated Red Blood Cells % 0.0 % (0-0); RBC Red Blood Cell Count 2.59 M/uL (3.86-4.86); White Blood Count 7.30 thou/uL (4.3-10.9)
[2024-09-24] MEDS: INSULIN REGULAR (HUMAN) 100 UNIT/ML SQ SCH (07:50)
[2024-09-24] MEDS: PROMETHAZINE INJ 25 MG/ML AMP IM PRN (07:51)
[2024-09-24] MEDS: POTASSIUM CL SA 10 MEQ TAB PO ONE (07:51)
[2024-09-24] MEDS: Ringers Lactate 1,000 ML IV SCH (07:51)
[2024-09-24] MEDS: MORPHINE 2 MG/ML SYR IV PRN (07:51)
[2024-09-24] MEDS: INSULIN GLARGINE 100 UNIT/ML SQ SCH (08:01)
[2024-09-24] MEDS: ENOXAPARIN 40 MG/0.4 ML SQ SCH (08:11)
--- NOTE | 2024-09-24 09:53 | P.PN ---
Date of Service: 09/24/24 Subjective: Still with nausea/vomiting, right-sided back pain Some more abdominal pain/tenderness to right upper quadrant today Reports 2 episodes of vaginal bleeding yesterday ROS: 10 point ROS as noted above, otherwise negative Physical exam GEN: Alert, oriented, NAD HEENT: Normal conjunctiva, sclera anicteric CV: Regular rate and rhythm, no edema Pulm: Nonlabored respirations on room air ABD: Soft, mild right upper quadrant tenderness, mild right CVA tenderness, nondistended MSK: No joint tenderness Integumentary: No rashes Neuro: Normal speech, normal affect Vitals reviewed Assessment: Severe sepsis secondary to bilateral pyelonephritis Right lower renal pole septic capsular fluid collection Distended gallbladder with cholelithiasis Vaginal bleeding Acute blood loss anemia Diabetes mellitus type [id number] with noncompliance and hyperglycemia Plan: Severe sepsis secondary to bilateral pyelonephritis Right lower renal pole subcapsular fluid collection Blood cultures obtained in the ED, initial lactate 2.1, now downtrending Blood cultures with no growth in 24 hours Continue IV fluids, antibiotics with cefepime Urine culture from 09/07 grew Klebsiella which was essentially pansensitive completed 10 days of Keflex at home renal ultrasound ordered and pending, unclear stability/chronicity of subcapsular fluid collection-not amenable to IR draining at this time Distended gallbladder with cholelithiasis LFTs within normal limits, some mild upper abdominal tenderness today surgical consultation Serial abdominal exams, daily labs Vaginal bleeding Acute blood loss anemia Reports 2 episodes of vaginal bleeding 09/23 evening Normal menstrual cycle was from 09/09 through 09/15 This is not a common occurrence for her We will monitor for further bleeding Will also obtain labs to evaluate for iron deficiency anemia and repeat hemoglobin this afternoon Diabetes mellitus type [id number] with noncompliance and hyperglycemia ACHS Accu-Chek, sliding scale insulin A1c was 11.4 Started on long-acting insulin-titrating DVT PPX: Lovenox Code status: Full code Discharge Plan: Home Plan to discharge in: Greater than 2 days Time Spent Managing Pts Care (In Minutes): 35
[2024-09-24] MEDS: METRONIDAZOLE 500mg IVPB 500 MG/100 ML BAG IV SCH (10:11)
[2024-09-24] MEDS: ONDANSETRON 4 MG/2 ML VIAL IV PRN (10:11)
[2024-09-24 11:24] LABS: Differential Total Cells Count 100; Segmented Neutrophils 74 % (40-80)
[2024-09-24 11:25] LABS: Blood Morphology Comment NOTED (NOT SEEN); Toxic Granulation 1+
[2024-09-24 12:49] LABS: Hematocrit 25.3 % (36.0-45.0); Hemoglobin 8.8 g/dL (12.0-15.0); MCH 30.8 pg (27.0-35.0); MCHC 34.7 g/dL (32.0-36.0); MCV 88.7 fL (80-100); MPV 9.3 fL (7.6-11.3); RBC Red Blood Cell Count 2.85 M/uL (3.86-4.86); White Blood Count 8.60 thou/uL (4.3-10.9)
[2024-09-24 13:11] LABS: Ferritin 367.9 ng/mL (8-252); Transferrin 114 mg/dL (200-360)
[2024-09-24 13:14] LABS: Iron < 10.0 ug/dL (50-170)
--- NOTE | 2024-09-24 16:23 | CON ---
Date of Consultation: 09/24/2024 Diagnoses: Urinary tract infection, pyelonephritis, diabetes, abdominal pain. History Of Present Illness: This is a case of a 44-year-old patient with a story of urinary tract in [facility]. Given antibiotics, then the cultures were checked. The antibiotics were adjusted to that. She reports feeling better, but then after that, the symptoms came back, but at this time also came associated with nausea, vomiting, abdominal pain with flank tenderness. So, she was also found to casey ve a fever and tachycardia and the working diagnosis of pyelonephritis, who has recently got admissio n, but also surgical consult was obtained since she has nausea and vomiting and she has ultrasound sh owing gallbladder, trying to see . Surgical consult was obtained. She denies any dysuria, hematuria, hematochezia, melena. Denies any recent traveling out of the country. Denies any family members sick at home. part, she has some burning sensation to it and frequency, but no b lood. No hematuria and not associated with diet. Review of Systems: Ten points otherwise unremarkable. Allergies: NONE. Medications: Metformin. Medical History: Diabetes. Family History: Include diabetes. Social History: She does not smoke. She does not drink alcohol. Physical Examination: Vital Signs: Temperature is 99.5 with pulse 103, blood pressure 110/70, respirations 16. General: The patient is awake, alert. There is no distress, but she has pain in the flank and also pain in the epigastric area. HEENT: The pupils are equal and reactive. Anicteric. Neck: Supple. Chest: Clear. Heart: S1, S2. Abdomen: Soft and depressible. There is mild epigastric tenderness, right flank, left flank and pul se to palpation. The rest of abdomen is soft and depressible. Extremities: Good capillary refill. Breasts/Pelvic/Rectal: Deferred. Laboratory Data: Blood work shows a WBC count of 12, hemoglobin of 12.0, and platelets of 256. Sodi um is 132, bicarb is 21, glucose 451, total bilirubin of 0.7, alkaline phosphate 116, lipase 13. Lac tic acid 2.1. CAT scan of the abdomen and pelvis done on 09/23/2024 and also an ultrasound shows ___ nephrogram bilaterally and appearance that could reflect pyelonephritis, subcapsular fluid co llection present along the lower pole of the kidneys. Distended gallbladder. No pericholecystic flu id. There is a fluid present cannot rule out the area of the kidneys right side, cannot rule out hem atoma, but not amenable for drainage as per radiologist. Abdominal ultrasound shows gallstones, dist ended gallbladder, but no findings of acute cholecystitis. Assessment/plan: A 44-year-old patient comes to us with multiple picture. She has multiple problems in the kidneys, also urinary tract infection, treated for that and found to have also epigastric canddio n and back pain and gallstones were seen, although no evidence of acute cholecystitis. She is going to be on antibiotics. Advance diet slowly. She might have 2 problems at the same time. Hopefully, we can treat this with antibiotics and then when the infection gets better in the kidneys, we may add ress the issue of the gallbladder. We see that clinically she deteriorates and the gallbladder take priority, then we will proceed accordingly. She understands that. She still want to continue conser vative treatment. KAY/MATT Voice ID: [id number] Report ID: [id number]
[2024-09-25 05:03] VITALS: BMI 33.8
[2024-09-25 05:20] LABS: Absolute Lymphocytes (CBC) 0.9 K/uL (0.7-4.9); Hematocrit 22.2 % (36.0-45.0); Hemoglobin 7.5 g/dL (12.0-15.0); MCH 30.3 pg (27.0-35.0); MCHC 33.9 g/dL (32.0-36.0); MCV 89.3 fL (80-100); MPV 9.6 fL (7.6-11.3); Nucleated RBC Absolute Count 0.0 (0-0); Nucleated Red Blood Cells % 0.1 % (0-0); RBC Red Blood Cell Count 2.49 M/uL (3.86-4.86); White Blood Count 7.90 thou/uL (4.3-10.9)
[2024-09-25 06:18] LABS: Albumin 1.5 g/dL (3.4-5.0); Albumin/Globulin Ratio 0.5 (1.1-1.8); Alkaline Phosphatase 72 U/L (45-117); Anion Gap 14.0 mEq/L (5.0-15.0); BUN Blood Urea Nitrogen 12 mg/dL (7-18); Globulin 3.3 g/dL (2.3-3.5); Glucose Level 152 mg/dL (74-106); Potassium 4.0 mEq/L (3.5-5.1)
[2024-09-25 06:24] LABS: ALT/SGPT < 14 U/L (13-56); AST/SGOT < 10 U/L (15-37)
--- NOTE | 2024-09-25 06:48 | RAD REPORT ---
EXAMINATION: US RETROPERITONEUM CLINICAL INDICATION: R/O right renal abscess TECHNIQUE: Real-time ultrasonography of the abdomen was performed. COMPARISON: Same day CT FINDINGS: RIGHT KIDNEY: Right renal length measurement: 12.2 cm. Echogenicity is normal. No calculus or solid mass. No hydronephrosis. . Complex subcapsular fluid collection measuring 1.9 cm in maximal thickness which is present along lower pole. LEFT KIDNEY: Left renal length measurement: 11.7 cm. Echogenicity is normal. No calculus or solid m ass. No hydronephrosis. . ADDITIONAL FINDINGS: Debris present in the bladder. IMPRESSION: Complex subcapsular fluid collection along the lower pole right kidney measuring 19 mm in thickness. This may reflect a subcapsular hematoma but has indeterminate sterility. No evidence of hydronephrosis. Nonspecific bladder debris.
--- NOTE | 2024-09-25 09:32 | P.PN ---
Date of Service: 09/25/24 Subjective: Symptoms improved from yesterday Less RUQ tenderness today no further vaginal bleeding ROS: 10 point ROS as noted above, otherwise negative Physical exam GEN: Alert, oriented, NAD HEENT: Normal conjunctiva, sclera anicteric CV: Regular rate and rhythm, no edema Pulm: Nonlabored respirations on room air ABD: Soft, mild right upper quadrant tenderness, mild right CVA tenderness, nondistended MSK: No joint tenderness Integumentary: No rashes Neuro: Normal speech, normal affect Vitals reviewed Assessment: Severe sepsis secondary to bilateral pyelonephritis Right lower renal pole septic capsular fluid collection Distended gallbladder with cholelithiasis Vaginal bleeding Acute blood loss anemia/severe iron deficiency anemia Diabetes mellitus type [id number] with noncompliance and hyperglycemia Plan: Severe sepsis secondary to bilateral pyelonephritis Right lower renal pole subcapsular fluid collection Blood cultures obtained in the ED, initial lactate 2.1, now downtrending Blood cultures with no growth in 24 hours Continue IV fluids, antibiotics with cefepime Urine culture from 09/07 grew Klebsiella which was essentially pansensitive completed 10 days of Keflex at home Fluid collection-unclear stability/chronicity of subcapsular fluid collection- not amenable to IR draining at this time Distended gallbladder with cholelithiasis LFTs within normal limits, some mild upper abdominal tenderness today surgical consultation Serial abdominal exams, daily labs Vaginal bleeding Acute blood loss anemia/severe iron deficiency anemia Reports 2 episodes of vaginal bleeding 09/23 evening Normal menstrual cycle was from 09/09 through 09/15 This is not a common occurrence for her We will monitor for further bleeding Monitor H/H daily Diabetes mellitus type [id number]-[id number] with noncompliance and hyperglycemia ACHS Accu-Chek, sliding scale insulin A1c was 11.4 Started on long-acting insulin-titrating DVT PPX: Lovenox Code status: Full code Discharge Plan: Home Plan to discharge in: Greater than 2 days Time Spent Managing Pts Care (In Minutes): 35
[2024-09-25] MEDS: CALCIUM CARBONATE CHEW 500MG TAB PO PRN (23:55)
[2024-09-26] MEDS: PANTOPRAZOLE 40MG TABLET PO ONE (00:11)
[2024-09-26 05:31] LABS: Absolute Lymphocytes (CBC) 1.3 K/uL (0.7-4.9); Hematocrit 26.0 % (36.0-45.0); Hemoglobin 8.8 g/dL (12.0-15.0); MCH 29.9 pg (27.0-35.0); MCHC 33.9 g/dL (32.0-36.0); MCV 88.2 fL (80-100); MPV 9.9 fL (7.6-11.3); Nucleated RBC Absolute Count 0.0 (0-0); Nucleated Red Blood Cells % 0.0 % (0-0); RBC Red Blood Cell Count 2.95 M/uL (3.86-4.86); White Blood Count 8.60 thou/uL (4.3-10.9)
[2024-09-26 05:55] LABS: Albumin 2.0 g/dL (3.4-5.0); Albumin/Globulin Ratio 0.5 (1.1-1.8); Alkaline Phosphatase 96 U/L (45-117); Anion Gap 10.5 mEq/L (5.0-15.0); BUN Blood Urea Nitrogen 13 mg/dL (7-18); Globulin 4.4 g/dL (2.3-3.5); Glucose Level 144 mg/dL (74-106); Potassium 3.5 mEq/L (3.5-5.1)
[2024-09-26 05:59] LABS: ALT/SGPT < 14 U/L (13-56); AST/SGOT < 10 U/L (15-37)
[2024-09-26] MEDS: PANTOPRAZOLE 40MG TABLET PO SCH ×2 (08:08→15:58)
--- NOTE | 2024-09-26 10:10 | P.PN ---
Date of Service: 09/26/24 Subjective: Still with nausea/vomiting and epigastric pain Pain seems to be more associated with nausea and vomiting to her Otherwise she is feeling little better each day Denies any further episodes of vaginal bleeding ROS: 10 point ROS as noted above, otherwise negative Physical exam GEN: Alert, oriented, NAD HEENT: Normal conjunctiva, sclera anicteric CV: Regular rate and rhythm, no edema Pulm: Nonlabored respirations on room air ABD: Soft, mild right upper quadrant tenderness, mild right CVA tenderness, nondistended MSK: No joint tenderness Integumentary: No rashes Neuro: Normal speech, normal affect Vitals reviewed Assessment: Severe sepsis secondary to bilateral pyelonephritis Right lower renal pole septic capsular fluid collection Distended gallbladder with cholelithiasis Vaginal bleeding Acute blood loss anemia/severe iron deficiency anemia Diabetes mellitus type [id number]-pqwirftgz with noncompliance and hyperglycemia Plan: Severe sepsis secondary to bilateral pyelonephritis Right lower renal pole subcapsular fluid collection Blood cultures obtained in the ED, initial lactate 2.1, now downtrending Blood cultures with no growth in 24 hours Repeat urine culture grew Klebsiella Continue IV fluids, antibiotics with cefepime and Flagyl sensitive to cefepime Urine culture from 09/07 grew Klebsiella which was essentially pansensitive completed 10 days of Keflex at home Fluid collection-unclear stability/chronicity of subcapsular fluid collection- not amenable to IR draining at this time Distended gallbladder with cholelithiasis LFTs within normal limits, some mild upper abdominal tenderness today Still with some persistent nausea/vomiting Trial twice daily PPI as patient feels symptoms may be related to GERD surgical consultation Serial abdominal exams, daily labs Vaginal bleeding Acute blood loss anemia/severe iron deficiency anemia Reports 2 episodes of vaginal bleeding 09/23 evening Normal menstrual cycle was from 09/09 through 09/15 This is not a common occurrence for her We will monitor for further bleeding Monitor H/H daily No further episodes of bleeding thus far, hemoglobin stabilizing Patient with severe iron deficiency anemia, holding off on starting IV iron due to fevers/sepsis Consider IV iron once elevated with acute phase of infection Diabetes mellitus type 2rjn-[id number]-huqqfwczl with noncompliance and hyperglycemia ACHS Accu-Chek, sliding scale insulin A1c was 11.4 Started on long-acting insulin-titrating Was previously on metformin outpatient, holding medications at discharge Blood sugar lower this morning around 114 while on Semglee 15 units twice daily and aggressive sliding scale insulin Will reduce to 10 units twice daily on Semglee and monitor blood sugar DVT PPX: Lovenox Code status: Full code Discharge Plan: Home Plan to discharge in: Greater than 2 days Time Spent Managing Pts Care (In Minutes): 35
[2024-09-26] MEDS: MAGNES/ALUMIN/SIMET 30ML UCUP PO ONE (14:57)
[2024-09-26] MEDS: SUCRALFATE 1GM/10ML UCUP PO SCH (15:59)
[2024-09-26] MEDS: INSULIN GLARGINE 100 UNIT/ML SQ SCH (19:53)
[2024-09-27 05:22] LABS: Absolute Lymphocytes (CBC) 1.3 K/uL (0.7-4.9); Hematocrit 25.9 % (36.0-45.0); Hemoglobin 8.9 g/dL (12.0-15.0); MCH 29.9 pg (27.0-35.0); MCHC 34.1 g/dL (32.0-36.0); MCV 87.7 fL (80-100); MPV 9.1 fL (7.6-11.3); Nucleated RBC Absolute Count 0.0 (0-0); Nucleated Red Blood Cells % 0.0 % (0-0); RBC Red Blood Cell Count 2.96 M/uL (3.86-4.86); White Blood Count 7.90 thou/uL (4.3-10.9)
[2024-09-27 05:39] LABS: ALT/SGPT < 14 U/L (13-56); AST/SGOT < 10 U/L (15-37); Albumin 2.0 g/dL (3.4-5.0); Albumin/Globulin Ratio 0.5 (1.1-1.8); Alkaline Phosphatase 97 U/L (45-117); Anion Gap 11.6 mEq/L (5.0-15.0); BUN Blood Urea Nitrogen 10 mg/dL (7-18); Globulin 4.4 g/dL (2.3-3.5); Glucose Level 172 mg/dL (74-106); Potassium 3.6 mEq/L (3.5-5.1)
[2024-09-27] MEDS: POTASSIUM CL SA 10 MEQ TAB PO ONE (09:42)
--- NOTE | 2024-09-27 15:49 | RAD REPORT ---
EXAMINATION: US RENAL ULTRASOUND CLINICAL INDICATION: Bilateral pyelonephritis r/o abscess TECHNIQUE: Real-time ultrasonography of the abdomen was performed. COMPARISON: 09/23/2024 FINDINGS: RIGHT KIDNEY: Right renal length measurement: 12.3 x 6.9 x 6.6 cm. Normal in echogenicity and size. N o calculus, solid mass or hydronephrosis. LEFT KIDNEY: Left renal length measurement: 11.8 x 7.0 x 6.9 cm. Normal in echogenicity and size. No calculus, solid mass or hydronephrosis. Mild thick appearing perinephric fluid inferiorly. URINARY BLADDER: Incompletely distended without gross abnormality detected. ADDITIONAL FINDINGS: Gallstones IMPRESSION: No hydronephrosis. Mild thickened perinephric fluid on the right. Infection is possible. Gallstones incidentally noted.
--- NOTE | 2024-09-27 20:54 | P.PN ---
Date of Service: 09/27/24 Subjective: Continues with fever Continues to feel uncomfortable ROS: 10 point ROS as noted above, otherwise negative Physical exam GEN: Alert, oriented x 3, NAD HEENT: Normal conjunctiva, sclera anicteric CV: RRR, no edema Pulm: Symmetrical chest wall movement, on room air ABD: Soft on palpation, mild right upper quadrant tenderness, mild right CVA tenderness, nondistended MSK: No joint tenderness Neuro: Normal speech, normal affect Vitals reviewed Assessment: Severe sepsis secondary to bilateral pyelonephritis Right lower renal pole septic capsular fluid collection Distended gallbladder with cholelithiasis Vaginal bleeding Acute blood loss anemia/severe iron deficiency anemia Diabetes mellitus type [id number]-sbyjygj-ickjbcvlj with noncompliance and hyperglycemia Plan: Severe sepsis secondary to bilateral pyelonephritis Right lower renal pole subcapsular fluid collection Blood cultures obtained in the ED, initial lactate 2.1, now downtrending Blood cultures with no growth in 24 hours Repeat urine culture grew Klebsiella Continue IV fluids, antibiotics with cefepime and Flagyl sensitive to cefepime Urine culture from 09/07 grew Klebsiella which was essentially pansensitive completed 10 days of Keflex at home Fluid collection-unclear stability/chronicity of subcapsular fluid collection- not amenable to IR draining at this time Distended gallbladder with cholelithiasis LFTs within normal limits, some mild upper abdominal tenderness today Still with some persistent nausea/vomiting, continue clear liquid diet Continue twice daily PPI as patient feels symptoms may be related to GERD surgical consultation Serial abdominal exams, daily labs Vaginal bleeding Acute blood loss anemia/severe iron deficiency anemia Reports 2 episodes of vaginal bleeding 09/23 evening Normal menstrual cycle was from 09/09 through 09/15 This is not a common occurrence for her We will monitor for further bleeding Monitor H/H daily No further episodes of bleeding thus far, hemoglobin stabilizing Patient with severe iron deficiency anemia, holding off on starting IV iron due to fevers/sepsis Consider IV iron once elevated with acute phase of infection Diabetes mellitus type [id number] with noncompliance and hyperglycemia ACHS Accu-Chek, sliding scale insulin A1c was 11.4 Started on long-acting insulin-titrating Was previously on metformin outpatient, holding medications at discharge Blood sugar lower this morning around 114 while on Semglee 15 units twice daily and aggressive sliding scale insulin Will reduce to 10 units twice daily on Semglee and monitor blood sugar DVT PPX: Lovenox Code status: Full code Discharge Plan: Home Plan to discharge in: Greater than 2 days Time Spent Managing Pts Care (In Minutes): 38
[2024-09-28 06:24] LABS: Absolute Lymphocytes (CBC) 1.0 K/uL (0.7-4.9); Hematocrit 26.0 % (36.0-45.0); Hemoglobin 9.0 g/dL (12.0-15.0); MCH 30.2 pg (27.0-35.0); MCHC 34.7 g/dL (32.0-36.0); MCV 87.0 fL (80-100); MPV 7.9 fL (7.6-11.3); Nucleated RBC Absolute Count 0.0 (0-0); Nucleated Red Blood Cells % 0.0 % (0-0); RBC Red Blood Cell Count 2.98 M/uL (3.86-4.86); White Blood Count 7.90 thou/uL (4.3-10.9)
[2024-09-28 06:46] LABS: Albumin 2.1 g/dL (3.4-5.0); Albumin/Globulin Ratio 0.5 (1.1-1.8); Alkaline Phosphatase 90 U/L (45-117); Anion Gap 7.1 mEq/L (5.0-15.0); BUN Blood Urea Nitrogen 7 mg/dL (7-18); Globulin 4.3 g/dL (2.3-3.5); Glucose Level 167 mg/dL (74-106); Potassium 4.1 mEq/L (3.5-5.1)
[2024-09-28 06:55] LABS: ALT/SGPT < 14 U/L (13-56); AST/SGOT < 10 U/L (15-37)
--- NOTE | 2024-09-28 13:58 | P.CNS ---
Date of Consult: 09/28/24 reason for consult: fever and pylonephritis hpi:44-year-old female with history of [id number]-[id number] diabetes presents the emergency department with complaint of nausea vomiting and abdominal pain. she was recently seen at the hospital on 09/07 and diagnosed with urinary tract infection and was given 10 days of Keflex .She completed her abx but then she started having nausea, vomiting and abdominal pain. She was evaluated here in the emergency room and found to be febrile 100.3 and tachycardic with an initial lactate of 2.1 white blood cell count of 12.8. CT of the abdomen pelvis showed striated nephrograms bilaterally with an appearance that could reflect pyelonephritis. A subcapsular fluid collection is present on the lower pole of the right kidney that is presumably a subcapsular hematoma though of uncertain acuity instability. There is only mild mass effect on the lower pole of the right kidney and the collection is not large enough for drainage, no hydronephrosis noted.Abdominal ultrasound was also performed which showed gallstones with a distended gallbladder but no specific findings to suggest acute cholecystitis. Pt is on cefepime but is still having fever 101.1 today at 8:32am.. Current Medications Acetaminophen (Acetaminophen 325 Mg Tablet) 650 mg PO Q4HP PRN PRN Reason: TEMP > 100' F Last Admin: 09/28/24 08:32 Dose: 650 mg Hydrocodone Bitart/Acetaminophen (Hydrocodone/Apap 7.5/325 Mg Tab) 1 tab PO Q6H PRN PRN Reason: Pain scale 5-7 (Moderate) Last Admin: 09/28/24 11:46 Dose: 1 tab Enoxaparin Sodium (Enoxaparin 40 Mg/0.4 Ml) 40 mg SQ DAILY [facility] Last Admin: 09/24/24 08:11 Dose: Not Given Cefepime HCl 2 gm/ Sodium (Chloride) 100 mls @ 200 mls/hr IV Q12HR [facility]; Protoco l Last Admin: 09/28/24 08:31 Dose: 100 mls Lactated Ringer's (Lactated Ringers) 1,000 mls @ 75 mls/hr IV .[id number] [facility] Last Admin: 09/28/24 05:26 Dose: 1,000 mls Insulin Glargine (Insulin Glargine 100 Unit/Ml) 10 unit SQ BID [facility] Last Admin: 09/28/24 08:37 Dose: 10 unit Insulin Human Regular (Insulin Regular (Human) 100 Unit/Ml) 0 unit SQ [facility]; Protocol Last Admin: 09/28/24 11:30 Dose: Not Given Morphine Sulfate (Morphine 2 Mg/Ml Syr) 2 mg IV Q4H PRN PRN Reason: Pain scale 8-10 (Severe) Last Admin: 09/26/24 03:29 Dose: 2 mg Ondansetron HCl (Ondansetron 4 Mg/2 Ml Vial) 4 mg IV Q4HP PRN PRN Reason: NAUSEA / VOMITING Last Admin: 09/27/24 16:41 Dose: 4 mg Pantoprazole Sodium (Pantoprazole 40mg Tablet) 40 mg PO BIDAC [facility]; Protocol Last Admin: 09/28/24 08:32 Dose: 40 mg Promethazine HCl (Promethazine Inj 25 Mg/Ml Amp) 12.5 mg IM Q6H PRN PRN Reason: NAUSEA / VOMITING Last Admin: 09/27/24 13:29 Dose: 12.5 mg Sucralfate (Sucralfate 1gm/10ml Ucup) 1 gm PO [facility] Last Admin: 09/28/24 11:46 Dose: 1 gm Allergies No Known Allergies Allergy (Verified 09/23/24 12:38) ros: PLEASE SEE HPI - Past Medical/Surgical History Has patient received pneumonia vaccine in the past: No Diabetic: Yes -: Diabetes- Type 2 -: UTI -: C- Scection x1 - Family History Mother -: Hypertension, Diabetes - Social History Smoking Status: Never smoker Alcohol use: No CD- Drugs: No Caffeine use: No Place of Residence: Home OBJECTIVE Temp Pulse Resp BP Pulse Ox 97.9 F 93 H 16 136/81 97 09/28/24 12:00 09/28/24 12:00 09/28/24 12:00 09/28/24 12:00 09/28/24 12:00 - Physical Exam General: Alert, In no apparent distress, Oriented x3 HEENT: Atraumatic, PERRLA, EOMI Neck: Supple, 2+ carotid pulse no bruit, No LAD Respiratory: Clear to auscultation bilaterally, Normal air movement Cardiovascular: Regular rate/rhythm, Normal S1 S2 Gastrointestinal: Normal bowel sounds, mild right upper quadrant tenderness, mild right CVA tenderness, nondistended Integumentary: No rashes OR LESION Microbiology 09/23/24 09:35 Blood - Blood Aerobic Blood Culture - Preliminary 09/23/24 09:35 Blood - Blood Blood Culture Gram Stain - Final 09/23/24 09:35 Blood - Blood Anaerobic Blood Culture - Final No growth in 5 days. 09/23/24 09:15 Blood - Blood Aerobic Blood Culture - Final No growth in 5 days. 09/23/24 09:15 Blood - Blood Anaerobic Blood Culture - Final No growth in 5 days. 09/23/24 06:40 Clean Catch Urine [place] Count - Final 09/23/24 06:40 Clean Catch Urine - Final Klebsiella Pneumoniae labs: wbc 7.9,hgb 9, plt count 343, bun 7, cr 0.94, albumin 2.1 assessment and planning Severe sepsis secondary to bilateral pyelonephritis Right lower renal pole septic capsular fluid collection Distended gallbladder with cholelithiasis Vaginal bleeding Acute blood loss anemia/severe iron deficiency anemia Diabetes mellitus type [id number]-[id number] with noncompliance and hyperglycemia moderate protein calorie malnourishment urine culture grew Klebsiella. recommend to switch from cefepime to levaquin. continue abx for 14 days from when cefepime was started. tentative stop date oct 07. can be discharge with PO levaquin ekg pending will continue to monitor for infection with wbc and fever trend thank you for the consult case discussed and in agreement with Dr Boykin
[2024-09-28] MEDS: Levofloxacin 750mg IV 750 MG/150 ML BAG IV SCH (14:40)
--- NOTE | 2024-09-28 20:20 | P.PN ---
Date of Service: 09/28/24 Subjective: Continues with fever Continues to feel uncomfortable ROS: 10 point ROS as noted above, otherwise negative Physical exam GEN: Alert, oriented x 3, NAD HEENT: Normal conjunctiva, sclera anicteric CV: RRR, no edema Pulm: Symmetrical chest wall movement, on room air ABD: Soft on palpation, mild right upper quadrant tenderness, mild right CVA tenderness, nondistended MSK: No joint tenderness Neuro: Normal speech, normal affect Vitals reviewed Assessment: Severe sepsis secondary to bilateral pyelonephritis Right lower renal pole septic capsular fluid collection Distended gallbladder with cholelithiasis Vaginal bleeding Acute blood loss anemia/severe iron deficiency anemia Diabetes mellitus type 2biw-[id number]-pdclksxcb with noncompliance and hyperglycemia Plan: Severe sepsis secondary to bilateral pyelonephritis Right lower renal pole subcapsular fluid collection Blood cultures obtained in the ED, initial lactate 2.1, now downtrending Blood cultures growing Klebsiella Repeat urine culture grew Klebsiella Continue IV fluids, antibiotics with cefepime and Flagyl sensitive to cefepime Urine culture from 09/07 grew Klebsiella which was essentially pansensitive completed 10 days of Keflex at home Fluid collection-unclear stability/chronicity of subcapsular fluid collection- not amenable to IR draining at this time Plan for discharge on p.o. Levaquin, stop date October 07. Distended gallbladder with cholelithiasis LFTs within normal limits, some mild upper abdominal tenderness today Still with some persistent nausea/vomiting, continue clear liquid diet Continue twice daily PPI as patient feels symptoms may be related to GERD surgical consultation Serial abdominal exams, daily labs Vaginal bleeding Acute blood loss anemia/severe iron deficiency anemia Reports 2 episodes of vaginal bleeding 09/23 evening Normal menstrual cycle was from 09/09 through 09/15 This is not a common occurrence for her We will monitor for further bleeding Monitor H/H daily No further episodes of bleeding thus far, hemoglobin stabilizing Patient with severe iron deficiency anemia, holding off on starting IV iron due to fevers/sepsis Consider IV iron once elevated with acute phase of infection Diabetes mellitus type [id number]-zvdaqsamq with noncompliance and hyperglycemia ACHS Accu-Chek, sliding scale insulin A1c was 11.4 Started on long-acting insulin-titrating Was previously on metformin outpatient, holding medications at discharge Blood sugar lower this morning around 114 while on Semglee 15 units twice daily and aggressive sliding scale insulin Will reduce to 10 units twice daily on Semglee and monitor blood sugar DVT PPX: Lovenox Code status: Full code Discharge Plan: Home Plan to discharge in: Greater than 2 days Time Spent Managing Pts Care (In Minutes): 36
[2024-09-29 04:56] LABS: Absolute Lymphocytes (CBC) 1.5 K/uL (0.7-4.9); Hematocrit 25.0 % (36.0-45.0); Hemoglobin 8.6 g/dL (12.0-15.0); MCH 29.9 pg (27.0-35.0); MCHC 34.3 g/dL (32.0-36.0); MCV 87.1 fL (80-100); MPV 8.2 fL (7.6-11.3); Nucleated RBC Absolute Count 0.0 (0-0); Nucleated Red Blood Cells % 0.0 % (0-0); RBC Red Blood Cell Count 2.88 M/uL (3.86-4.86); White Blood Count 8.70 thou/uL (4.3-10.9)
[2024-09-29 05:13] LABS: Anion Gap 8.8 mEq/L (5.0-15.0); BUN Blood Urea Nitrogen 5.0 mg/dL (7-18); Glucose Level 203.0 mg/dL (74-106); Magnesium 1.3 mg/dL (1.6-2.4); Potassium 3.8 mEq/L (3.5-5.1)
[2024-09-29] MEDS: Magnesium Sulfate 2gm IVPB 2 G/50 ML BAG IV ONE (06:20)
[2024-09-29] MEDS: POTASSIUM PHOS IN 0.9 % NACL 15 MMOL/250 ML BAG IV ONE (08:17)
[2024-09-29 13:10] VITALS: O2SAT 98
--- NOTE | 2024-09-29 17:22 | P.PN ---
Date of Service: 09/29/24 Subjective: Fever this morning Reports feeling much better will need to be afebrile for 24 hours prior to dc ROS: 10 point ROS as noted above, otherwise negative Physical exam GEN: AAO x 3, NAD HEENT: Normal conjunctiva, sclera anicteric CV: RRR, no edema Pulm: Symmetrical chest wall movement, on room air ABD: Soft on palpation, nondistended MSK: No joint tenderness Neuro: Normal speech, normal affect Vitals reviewed Assessment: Severe sepsis secondary to bilateral pyelonephritis Right lower renal pole septic capsular fluid collection Distended gallbladder with cholelithiasis Vaginal bleeding Acute blood loss anemia/severe iron deficiency anemia Diabetes mellitus type 9agx-fqfmorj-vnzcvgyia with noncompliance and hyperglycemia Plan: Severe sepsis secondary to bilateral pyelonephritis Right lower renal pole subcapsular fluid collection Blood cultures obtained in the ED, initial lactate 2.1, now cleared Blood cultures growing Klebsiella Repeat urine culture grew Klebsiella Continue IV fluids, antibiotics with cefepime and Flagyl sensitive to cefepime Urine culture from 09/07 grew Klebsiella which was essentially pansensitive completed 10 days of Keflex at home Fluid collection-unclear stability/chronicity of subcapsular fluid collection-n ot amenable to IR draining at this time Plan for discharge on p.o. Levaquin, stop date October 07. Distended gallbladder with cholelithiasis LFTs within normal limits, some mild upper abdominal tenderness today Still with some persistent nausea/vomiting, continue clear liquid diet Continue twice daily PPI as patient feels symptoms may be related to GERD surgical consultation Serial abdominal exams, daily labs Vaginal bleeding Acute blood loss anemia/severe iron deficiency anemia Reports 2 episodes of vaginal bleeding 09/23 evening Normal menstrual cycle was from 09/09 through 09/15 This is not a common occurrence for her We will monitor for further bleeding Monitor H/H daily No further episodes of bleeding thus far, hemoglobin stabilizing Patient with severe iron deficiency anemia, holding off on starting IV iron due to fevers/sepsis Consider IV iron once elevated with acute phase of infection Diabetes mellitus type [id number]-mbeuvyxff with noncompliance and hyperglycemia ACHS Accu-Chek, sliding scale insulin A1c was 11.4 Started on long-acting insulin-titrating Was previously on metformin outpatient, holding medications at discharge Blood sugar lower this morning around 114 while on Semglee 15 units twice daily and aggressive sliding scale insulin Will reduce to 10 units twice daily on Semglee and monitor blood sugar DVT PPX: Lovenox Code status: Full code Discharge Plan: Home Plan to discharge in: Greater than 2 days Time Spent Managing Pts Care (In Minutes): 36
[2024-09-29] MEDS: ENSURE CLEAR 200 ML CAN PO SCH (20:51)
--- NOTE | 2024-09-29 22:43 | PN ---
Subjective: The patient is lying in bed, family in the room. The patient denies any headache, nause a, vomiting, chest pain, abdominal pain, constipation, or diarrhea. Objective: Vital Signs: Temperature 98, pulse 92, respirations 16, blood pressure 136/85. Lungs: Basal crackles. Heart: S1, S2. Regular. Abdomen: Soft, nontender. Bowel sounds present. Extremities: No edema. Laboratory Data: WBC 8.7, hemoglobin 8.6, platelets 241. BUN 5, creatinine 0.9, glucose is 203. Ur ine and blood cultures are growing Klebsiella pneumoniae. The patient is currently being given Levaq uin. Assessment And Plan: 1. Sepsis, improving, bilateral pyelonephritis. 2. Right lower renal pole septic capsular fluid collection. 3. Distended gallbladder with cholelithiasis. 4. Acute blood loss anemia with severe iron deficiency anemia. 5. Vaginal bleed. 6. Diabetes mellitus with noncompliance to medication causing hyperglycemia. 7. Moderate protein-calorie malnourishment. 8. Klebsiella pneumoniae bacteremia and urosepsis. Continue antibiotic for 2 weeks. We will follow the patient as needed. NF/MODL Voice ID: [id number] Report ID: [id number]
[2024-09-30 06:51] LABS: Absolute Lymphocytes (CBC) 1.4 K/uL (0.7-4.9); Hematocrit 25.5 % (36.0-45.0); Hemoglobin 8.6 g/dL (12.0-15.0); MCH 29.3 pg (27.0-35.0); MCHC 33.6 g/dL (32.0-36.0); MCV 87.1 fL (80-100); MPV 8.2 fL (7.6-11.3); Nucleated RBC Absolute Count 0.0 (0-0); Nucleated Red Blood Cells % 0.1 % (0-0); RBC Red Blood Cell Count 2.93 M/uL (3.86-4.86); White Blood Count 8.10 thou/uL (4.3-10.9)
[2024-09-30 07:02] LABS: Anion Gap 8.9 mEq/L (5.0-15.0); BUN Blood Urea Nitrogen 3.0 mg/dL (7-18); Glucose Level 235.0 mg/dL (74-106); Magnesium 1.7 mg/dL (1.6-2.4); Potassium 3.9 mEq/L (3.5-5.1)
[2024-09-30] MEDS: POTASSIUM CL SA 10 MEQ TAB PO ONE (08:49)
--- NOTE | 2024-09-30 13:12 | P.PN ---
Date of Service: 09/30/24 subjective: tolerating abx with no issue. WBC wnl. VS stable objective Temp Pulse Resp BP Pulse Ox 97.9 F 96 H 18 134/76 96 09/30/24 08:00 09/30/24 08:00 09/30/24 08:00 09/30/24 08:00 09/30/24 08:00 - Physical Exam General: Alert, In no apparent distress, Oriented x3 HEENT: Atraumatic, PERRLA, EOMI Neck: Supple, 2+ carotid pulse no bruit, No LAD Respiratory: Clear to auscultation bilaterally, Normal air movement Cardiovascular: Regular rate/rhythm, Normal S1 S2 Gastrointestinal: Normal bowel sounds, mild right upper quadrant tenderness, mild right CVA tenderness, nondistended Integumentary: No rashes OR LESION Microbiology 09/23/24 09:35 Blood - Blood Aerobic Blood Culture - Final Klebsiella Pneumoniae 09/23/24 09:35 Blood - Blood Blood Culture Gram Stain - Final 09/23/24 09:35 Blood - Blood Anaerobic Blood Culture - Final No growth in 5 days. 09/23/24 09:15 Blood - Blood Aerobic Blood Culture - Final No growth in 5 days. 09/23/24 09:15 Blood - Blood Anaerobic Blood Culture - Final No growth in 5 days. 09/23/24 06:40 Clean Catch Urine Watkins Count - Final 09/23/24 06:40 Clean Catch Urine - Final Klebsiella Pneumoniae labs: wbc 8.1,hgb 8.6, plt count 393, bun 3, cr 0.72, albumin 2.1 assessment and planning Severe sepsis secondary to bilateral pyelonephritis bacteremia secondary to Klebsiella Pneumoniae Right lower renal pole septic capsular fluid collection Distended gallbladder with cholelithiasis Vaginal bleeding Acute blood loss anemia/severe iron deficiency anemia Diabetes mellitus type [id number] with noncompliance and hyperglycemia moderate protein calorie malnourishment urine culture grew Klebsiella. blood culture also grew Klebsiella Pneumoniae recently. continue abx for 14 days from when cefepime was started. tentative stop date oct 07. can be discharge with PO levaquin ekg QT/QTc 355/397 echo pending will continue to monitor for infection with wbc and fever trend case discussed and in agreement with Dr Boykin
--- NOTE | 2024-09-30 15:40 | ECHO ---
HEIGHT: 5 ft 2 in WEIGHT: 185 lb 0 oz DATE OF STUDY: 09/30/[address]: Jessie Aldana NP 2-DIMENSIONAL: YES M.MODE: YES DOPPLER: YS COLOR FLOW: YES TDS: PORTABLE: YES DEFINITY: BUBBLE STUDY: DIAGNOSIS: RULE OUT ENDOCARDITIS CARDIAC HISTORY: CATHERIZATION: NO SURGERY: NO PROSTHETIC VALVE: NO PACEMAKER: NO MEASUREMENTS (cm) DIASTOLIC (NORMALS) SYSTOLIC (NORMALS) IVSd 1.0 (0.6-1.2) LA Diam 3.6 (1.9-4.0) LVEF 55-60% LVIDd 3.4 (3.5-5.7) LVIDs 2.5 (2.0-3.5) %FS 27% LVPWd 1.1 (0.6-1.2) Ao Diam 2.7 (2.0-3.7) 2 DIMENSIONAL ASSESSMENT: RIGHT ATRIUM: NORMAL LEFT ATRIUM: NORMAL RIGHT VENTRICLE: NORMAL LEFT VENTRICLE: NORMAL TRICUSPID VALVE: NORMAL MITRAL VALVE: NORMAL PULMONIC VALVE: NORMAL AORTIC VALVE: NORMAL PERICARDIAL EFFUSION: NONE AORTIC ROOT: NORMAL LEFT VENTRICULAR WALL MOTION: NORMAL DOPPLER/COLOR FLOW: NORMAL COMMENTS: 1. NORMAL LEFT VENTRICULAR SYSTOLIC FUNCTION, EJECTION FRACTION 55-60%, NORMAL WALL MOTION 2. NORMAL DIASTOLIC FUNCTION TECHNOLOGIST: BRITTANY HELTON
--- NOTE | 2024-09-30 16:00 | P.DS ---
Admission Date: 09/23/24 Discharge Date: 09/30/24 Reason for Admission: Pyelonephritis Brief History of Present Illness: Diagnosis Severe sepsis secondary to bilateral pyelonephritis Right lower renal pole septic capsular fluid collection Distended gallbladder with cholelithiasis Vaginal bleeding Acute blood loss anemia/severe iron deficiency anemia Diabetes mellitus type [id number] with noncompliance and hyperglycemia [facility] 09/23/2024 44-year-old female with history of [id number] diabetes presents the emergency department chief complaint of nausea vomiting and abdominal pain. She was seen here in the hospital on 09/07 and diagnosed with urinary tract infection, she was given 10 days of Keflex at that time. Her urine culture returned with Klebsiella which was sensitive to all tested antibiotics except for ampicillin. She reports that she felt better for couple days after finishing the antibiotics but then her symptoms came back with nausea, vomiting and abdominal pain. She was evaluated here in the emergency room and found to be febrile and tachycardic with an initial lactate of 2.1 white blood cell count of 12.8 CT of the abdomen pelvis was obtained which showed striated nephrograms bilaterally with an appearance that could reflect pyelonephritis. A subcapsular fluid collection is present on the lower pole of the right kidney that is presumably a subcapsular hematoma though of uncertain acuity instability. There is only mild mass effect on the lower pole of the right kidney and the collection is not large enough for drainage, no hydronephrosis noted. Abdominal ultrasound was also performed which showed gallstones with a distended gallbladder but no specific findings to suggest acute cholecystitis and no sonographic Fischer sign. Chest x-ray is negative for acute findings, discussed the case with radiology, area under the right kidney is very small, does not believe this is an abscess at this time and is not amendable to drainage, will obtain renal ultrasound to further evaluate/obtain baseline. Patient will be admitted for pyelonephritis, severe sepsis. Hospital Course: Britney Bradshaw was admitted and treated for severe sepsis 2/2 bilateral pylenophritis UTI growing klebsiella pneumoniae and bacteremia 2/2 klebsiella pneumoniae. She has had a lengthy stay with IV antibiotics starting with cefepime. Infectious disease consulted and recommended discharge with PO levaquin to complete antibiotic course for 14 days total. Echocardiogram within normal limits. Britney reports feeling much better, able to ambulate independently, afebrile, and tolerating PO diet. Britney was seen on morning rounds hemodynamically stable and infectious disease has cleared for discharge. Physical exam GEN: AAO x 3, NAD HEENT: Normal conjunctiva, sclera anicteric CV: RRR, no edema Pulm: Symmetrical chest wall movement, on room air ABD: Soft on palpation, nondistended MSK: No joint tenderness Neuro: Normal speech, normal affect <Juli Acharya - Last Filed: 10/01/24 05:19> Admission Date: 09/23/24 Discharge Date: 10/01/24 <Jeannie Holloway - Last Filed: 10/01/24 06:33> Disposition: ROUTINE DISCHARGE Discharge Condition: GOOD Vital Signs/Physical Exam: Temp Pulse Resp BP Pulse Ox 99.1 F 99 H 18 150/82 H 96 09/30/24 12:00 09/30/24 12:00 09/30/24 12:00 09/30/24 12:00 09/30/24 12:00 Laboratory Data at Discharge: WBC 8.10 thou/uL (4.3-10.9) 09/30/24 06:28 Hgb 8.6 g/dL (12.0-15.0) L 09/30/24 06:28 Hct 25.5 % (36.0-45.0) L 09/30/24 06:28 Plt Count 393 thou/uL (152-406) 09/30/24 06:28 Sodium 136 mEq/L (136-145) 09/30/24 06:28 Potassium 3.9 mEq/L (3.5-5.1) 09/30/24 06:28 BUN 3 mg/dL (7-18) L 09/30/24 06:28 Creatinine 0.72 mg/dL (0.55-1.02) 09/30/24 06:28 Glucose 235 mg/dL (74-106) H 09/30/24 06:28 Phosphorus 2.4 mg/dL (2.5-4.9) L 09/30/24 06:28 Magnesium 1.7 mg/dL (1.6-2.4) 09/30/24 06:28 Total Bilirubin 0.5 mg/dL (0.2-1.0) 09/28/24 06:04 AST < 10 U/L (15-37) L 09/28/24 06:04 ALT < 14 U/L (13-56) 09/28/24 06:04 Alkaline Phosphatase 90 U/L (45-117) 09/28/24 06:04 Lipase 13 U/L (13-75) 09/23/24 06:37 <Juli Acharya - Last Filed: 10/01/24 05:19> Vital Signs/Physical Exam: Temp Pulse Resp BP Pulse Ox 98.2 F 102 H 18 154/84 H 98 09/30/24 16:00 09/30/24 16:00 09/30/24 16:00 09/30/24 16:00 09/30/24 16:00 Laboratory Data at Discharge: WBC 8.10 thou/uL (4.3-10.9) 09/30/24 06:28 Hgb 8.6 g/dL (12.0-15.0) L 09/30/24 06:28 Hct 25.5 % (36.0-45.0) L 09/30/24 06:28 Plt Count 393 thou/uL (152-406) 09/30/24 06:28 Sodium 136 mEq/L (136-145) 09/30/24 06:28 Potassium 3.9 mEq/L (3.5-5.1) 09/30/24 06:28 BUN 3 mg/dL (7-18) L 09/30/24 06:28 Creatinine 0.72 mg/dL (0.55-1.02) 09/30/24 06:28 Glucose 235 mg/dL (74-106) H 09/30/24 06:28 Phosphorus 2.4 mg/dL (2.5-4.9) L 09/30/24 06:28 Magnesium 1.7 mg/dL (1.6-2.4) 09/30/24 06:28 Total Bilirubin 0.5 mg/dL (0.2-1.0) 09/28/24 06:04 AST < 10 U/L (15-37) L 09/28/24 06:04 ALT < 14 U/L (13-56) 09/28/24 06:04 Alkaline Phosphatase 90 U/L (45-117) 09/28/24 06:04 Lipase 13 U/L (13-75) 09/23/24 06:37 <Jeannie Holloway - Last Filed: 10/01/24 06:33> Diet: Regular Activity: Ad nancy <Juli Acharya - Last Filed: 10/01/24 05:19> Physician Review: Patient Assessed, Agree with Above Assessment and Plan <Jeannie Holloway - Last Filed: 10/01/24 06:33> Home Medications: Metformin HCl [Glucophage*] 500 mg PO BIDWM 09/23/24 levoFLOXacin [Levaquin] 750 mg PO DAILY 8 Days #8 tab 09/30/24 New Medications: levoFLOXacin [Levaquin] 750 mg PO DAILY 8 Days #8 tab Physician Discharge Instructions: PROBLEM: GOAL: Clear understanding of disease process INSTRUCTIONS: 1. Please call and schedule a follow-up appointment with your PCP in 3-5 days - Please follow-up with your PCP for medication refills/adjustments, follow closely to continue monitoring your kidney function -Klebsiella Pneumoniae grew in your urine and will be watching the repeat blood culture 2. Please call and schedule a follow-up appointment with in 3-5 days 3. Continue regular diet, advance as tolerated 4. activity as tolerated 5. Return to the ED if symptoms worsen New medications Levaquin 750 mg daily x 8 days, end date 10/07/2024 Diet: Regular Activity: as tolerated Followup: NONE,NONE [Primary Care Provider] - (3-5 days Please see list of local family doctors provided)
[2024-09-30 16:41] VITALS: BP 154/84; TEMP 98.2
== END 2024-09-30 17:58 | disposition home or self-care (01) | DRG 872 ==
LOC: ER 06:25 → ERHOLD 10:26 → 4TH 11:43
PROVIDERS: ADMIT Hospitalist; ATTEND Family Medicine
DX: A41.9 Sepsis, unspecified organism (principal); N10 Acute pyelonephritis; D62 Acute posthemorrhagic anemia; E44.0 Moderate protein-calorie malnutrition; R65.20 Severe sepsis without septic shock; E11.65 Type 2 diabetes mellitus with hyperglycemia; D50.9 Iron deficiency anemia, unspecified; N93.9 Abnormal uterine and vaginal bleeding, unspecified; K80.80 Other cholelithiasis without obstruction; T50.996A Underdosing of other drugs, medicaments and biological substances, initial encounter; B96.1 Klebsiella pneumoniae [K. pneumoniae] as the cause of diseases classified elsewhere; Z79.4 Long term (current) use of insulin; Z68.33 Body mass index [BMI] 33.0-33.9, adult; Z79.84 Long term (current) use of oral hypoglycemic drugs; Z91.148 Patient's other noncompliance with medication regimen for other reason
CPT/HCPCS: 36415; 71045; 74177; 76705; 76770; 80048; 80053; 81001; 81025; 82728; 82947; 83036; 83540; 83605; 83690; 83735; 84100; 84466; 85025; 85027; 87040; 87077; 87086; 87088; 87186; 87205; 93005; 93306; 96361; 96365; 96367; 96368; 96375; 99285; J0692; J1650; J1815; J2270; J2405; J2550; J3475; J7030; J7040; J7120; Q9967